=== PATIENT | female | born 1960 | race Caucasian/White ===

== ENCOUNTER 2018-08-18 13:50 | Outpatient (REF) | payer OTHER, SELFPAY ==
[2018-08-18 22:48] LABS: Hemoglobin A1C 5.8 % (4.5-6.2)
[2018-08-18 22:53] LABS: ALT 27 U/L (12-78); Anion Gap 11.7 mmol/L (3-11); BUN 10 mg/dL (7-18); CO2 26.3 mmol/L (21.0-32.0); CREATININE 0.72 mg/dL (0.55-1.02); Calcium 10.1 mg/dL (8.5-10.1); Chloride 100 mmol/L (98-107); Cholesterol 264 mg/dL (50-200); Glucose 89 mg/dL (70-100); HDL Cholesterol 75 mg/dL (40-60); LDL CHOLESTEROL 169 mg/dL (<100); Potassium 5.3 mmol/L (3.5-5.1); Sodium 138 mmol/L (136-145); TSH (W/Ref FT4) 2.79 uIU/mL (0.358-3.74); Triglyceride 70 mg/dL (30-150)
[2018-08-22 10:54] LABS: Hepatitis C Ab w Rflx HCV PCR Negative (NEGAT)
== END 2018-08-18 14:10 ==
LOC: NCHCN 13:50
PROVIDERS: PCP Family Medicine; Visit Provider Family Medicine
DX: Z00.00 Encounter for general adult medical examination without abnormal findings (principal); I10 Essential (primary) hypertension; E66.01 Morbid (severe) obesity due to excess calories; Z11.59 Encounter for screening for other viral diseases
CPT/HCPCS: 80048; 80061; 83721; 86803; 83036; 84443; 84460

== ENCOUNTER 2021-07-22 13:21 | Outpatient (REF) | payer MEDICAID, SELFPAY ==
--- NOTE | 2021-07-22 11:10 | PAPFT_PTH ---
PATIENT: Belkys Otero LOC: [facility]#:[id number] AGE/SX: 60/F ROOM: RE07/22/[address]: Edith Corral : 1960 BED: DIS: 07/22/2021 SPEC #: [id number] RECD: 07/23/21 13:04 STATUS: GABO MERAZ #: [id number] STORM: 07/22/21 11:[address]: Edith Corral DEPT: [facility] Cytology RECD BY: Nayely Welsh Tissues: 1 - CX/ENDOCX FOR PAP SMEARS Procedures: PAP THIN PREP/[facility] Screening HPV DNA PROBE Comments: [id number]
--- OUTSIDE RECORDS SUMMARY | 2021-07-22 13:36 | XMS_ITS | CCD ---
:1960 Author Care Team Providers Name Role Phone Kari CHEN Attending Physician Unavailable Vital Signs Unknown or Not Available. Allergies Allergy Code Allergy Type Reaction Status SENSITIVE TO STIMULANTS 0 Drug allergy HEART RACES AND A ctive {Clinical monitoring SHAKEY unavailable} Procedures Unknown or Not Available. History of Immunizations Unknown or Not Available. Problems Unknown or Not Available. Results Unknown or Not Available. Active Medications Unknown or Not Available. Medications Administered During Visit Unknown or Not Available. Encounters Encounter Diagnosis Diagnosis Code Start Date Screening mammography [id number] 06/30/2021 Social History Smoking Status Code Start Date End Date Never smoker [id number] Patient Decision Aids Unknown or Not Available. Discharge Instructions You were admitted to [facility] on 06/30/2021 07:59 with a principal diagnosis of Encounter for screening jamee mogram for malignant neoplasm of breast You were discharged from [facility] on 06/30/2021 07:59 Should you have any questions prior to d ischarge, please contact a member of your healthcare team. If you have left the ho spital and have any questions, please contact your primary care physician. Chief Complaint and Reason For Visit Chief Complaint Date of Onset SCR Function Status Unknown or Not Available. Plan of Care Unknown or Not Available. Referral/Transition of Care Unknown or Not Available.
--- OUTSIDE RECORDS SUMMARY | 2021-07-22 13:36 | XMS_ITS | CCD ---
:1960 Author Care Team Providers Name Role Phone Shaunna LYNN Attending Physician Unavailable Shaunna LYNN Rounding (Secondary) Physician Unavailab le Vital Signs Unknown or Not Available. Allergies [...] Encounters Encounter Diagnosis Diagnosis Code Start Date Nondisplaced fracture of neck of right radius, [id number] 04/30/2021 subsequent encounter for closed fracture with routine healing Social History Smoking Status Code Start Date End Date Never smoker [id number] Patient Decision Aids Unknown or Not Available. Discharge Instructions You were admitted to [facility] on 04/30/2021 14:37 with a principal diagnosis of Nondisplaced fracture of ne ck of right radius, subsequent encounter for closed fracture with routine healing You were discharged from [facility] on 04/30/2021 00:00 Should you have any questions prior to d ischarge, please contact a member of your healthcare team. If you have left the ho spital and have any questions, please contact your primary care physician. Chief Complaint and Reason For Visit Unknown or Not Available. Function Status Unknown or Not Available. Plan of Care Unknown or Not Available. Referral/Transition of Care Unknown or Not Available.
== END 2021-07-22 13:22 | disposition home or self-care (01) ==
LOC: NCHCN 13:21
PROVIDERS: PCP Family Medicine; Visit Provider Family Medicine
DX: Z12.4 Encounter for screening for malignant neoplasm of cervix (principal); Z11.51 Encounter for screening for human papillomavirus (HPV)
CPT/HCPCS: 88142; 87624

== ENCOUNTER 2022-07-27 17:26 | Outpatient (REF) | payer MEDICAID, SELFPAY ==
[2022-07-27 15:39] LABS: Hemoglobin A1C 5.5 % (<5.7)
[2022-07-27 16:11] LABS: ALT 24 U/L (14-59); AST 22 U/L (15-37); Albumin 3.8 g/dL (3.4-5.0); Alkaline Phosphatase 91 U/L (46-116); Anion Gap 11.3 mmol/L (3-11); BUN 15 mg/dL (7-18); Bilirubin, Total 0.3 mg/dL (0.2-1.0); CO2 23.7 mmol/L (21.0-32.0); CREATININE 0.7 mg/dL (0.55-1.02); Calcium 9.8 mg/dL (8.5-10.1); Calculated LDL 169 mg/dL (<100); Chloride 105 mmol/L (98-107); Cholesterol 252 mg/dL (<200); Estimated GFR 98.34 (mL/min/1.73m2); Glucose 105 mg/dL (74-106); HDL Cholesterol 73 mg/dL (40-60); Potassium 4.3 mmol/L (3.5-5.1); Sodium 140 mmol/L (136-145); Total Protein 7.8 g/dL (6.4-8.2); Triglyceride 53 mg/dL (<150)
== END 2022-07-27 17:27 | disposition home or self-care (01) ==
LOC: NCHCN 17:26
PROVIDERS: PCP Family Medicine; Visit Provider Family Medicine
DX: E78.5 Hyperlipidemia, unspecified (principal); I10 Essential (primary) hypertension; R73.09 Other abnormal glucose
CPT/HCPCS: 80053; 80061; 83036